=== PATIENT | male | born 1975 | race Caucasian/White ===

== ENCOUNTER → 2021-04-17 | Outpatient (CLI) | payer OTHER | LOC: HEART 5 09:41 | DX: J60 Coalworker's pneumoconiosis (principal); R94.2 Abnormal results of pulmonary function studies | CPT/HCPCS: 94060; 94729 ==

== ENCOUNTER → 2021-04-24 | Outpatient (CLI) | payer OTHER | LOC: KOH-I 13:30 | DX: J60 Coalworker's pneumoconiosis (principal); R91.1 Solitary pulmonary nodule | CPT/HCPCS: 71250 ==